=== PATIENT | female | born 1945 | race Caucasian/White ===

== ENCOUNTER → 2020-09-28 | Outpatient (CLI) | payer MEDICARE, OTHER | LOC: EXRD 10:10 | DX: M85.88 Other specified disorders of bone density and structure, other site (principal); E55.9 Vitamin D deficiency, unspecified | CPT/HCPCS: 77080 ==

== ENCOUNTER → 2021-02-11 | Outpatient (CLI) | payer MEDICARE, OTHER | LOC: HEART 5 11:23 | DX: R06.02 Shortness of breath (principal) | CPT/HCPCS: 94010 ==

== ENCOUNTER → 2021-08-26 | Outpatient (CLI) | payer MEDICARE, OTHER | LOC: EXRD 11:15 | DX: R05.9 Cough, unspecified (principal); C34.90 Malignant neoplasm of unspecified part of unspecified bronchus or lung | CPT/HCPCS: 71046 ==